=== PATIENT | male | born 1960 | race Caucasian/White ===

== ENCOUNTER → 2019-09-24 | Outpatient (CLI) | payer OTHER, SELFPAY ==
[2013-05-22 13:29] VITALS: BMI 27.3
--- NOTE | 2019-09-24 11:30 | PROSBIL_PTH ---
PATIENT: ELSIE LEE LOC: [facility] U#:[id number] AGE/SX: 59/M ROOM: RE09/24/[address]: Dr. Bhavesh Szymanski MD : 1960 BED: DIS: 09/24/2019 SPEC #: [id number] RECD: 09/24/19 15:55 STATUS: LEIGHANN REZoe #: [id number] KALIA: 09/24/19 11:[address]: Bhavesh Szymanski DEPT: SURGICAL PATHOLOGY RECD BY: Gerson Bonilla ENTERED: 09/25/19 08:28 SP TYPE: PROST BX ELIESER DR: Dr. Nikolas Arriaga MD Tissues: A - PROSTATE RIGHT B - PROSTATE RIGHT C - PROSTATE RIGHT D - PROSTATE LEFT E - PROSTATE LEFT F - PROSTATE LEFT Procedures: PROSTATE BX HEADER OPERATION: Prostate biopsy PRE-OP DIAGNOSIS: Elevated PSA TISSUE SUBMITTED: A - Right apex, B - Right mid, C - Right base, D - Left apex, E - Left mid, F - Left base MICROSCOPIC DIAGNOSIS A. Right prostate, apex, core biopsy: Prostatic tissue, negative for malignancy. B. Right prostate, mid, core biopsy: Prostatic adenocarcinoma. Ryan grade: 3+3=6 Number of cores involved: 1/2 Proportion of tissue involved: ~15% Perineural invasion: Present, focal. Greatest tumor length: 0.2 cm Chronic inflammation. C. Right prostate, base, core biopsy: Prostatic adenocarcinoma. Bridger grade: 3+3=6 Number of cores involved: 2/2 Proportion of tissue involved: ~40% Perineural invasion: Present, focal. Greatest tumor length: 0.7 cm Focal high-grade prostatic intraepithelial neoplasia (HGPIN). Focal chronic inflammation. D. Left prostate, apex, core biopsy: Prostatic adenocarcinoma. Ryan grade: 3+3=6 Number of cores involved: 1/2 Proportion of tissue involved: 15-20% Perineural invasion: Not identified. Greatest tumor length: 0.3 cm Focal high-grade prostatic intraepithelial neoplasia (HGPIN). E. Left prostate, mid, core biopsy: Prostatic adenocarcinoma. Ryan grade: 3+3=6 Number of cores involved: 3/4 Proportion of tissue involved: ~25% Perineural invasion: Not identified. Greatest tumor length: 0.2 cm Focal high-grade prostatic intraepithelial neoplasia (HGPIN). F. Left prostate, base, core biopsy: Prostatic adenocarcinoma. Ryan grade: 3+4=7 Number of cores involved: 2/2 Proportion of tissue involved: ~30% Perineural invasion: Not identified. Greatest tumor length: 0.5 cm Focal high-grade prostatic intraepithelial neoplasia (HGPIN). SJ:mello 09/26/19 COMMENT Case has been reviewed in consultation with Dr. Jones who concurs with the above diagnosis. IDC:AM MICROSCOPIC DESCRIPTION Slides are reviewed. GROSS DESCRIPTION A - Received is one container designated prostate, right apex. The specimen consists of two elongated fragments of light guzman-white soft tissue measuring 0.2 and 0.5 cm in length and 0.1 cm in diameter. The specimen is totally submitted in one cassette. B - Received is one container designated prostate, right mid. The specimen consists of two elongated fragments of light guzman-white soft tissue each measuring 1.3 cm in length and 0.1 cm in diameter. The specimen is totally submitted in one cassette. C - Received is one container designated prostate, right base. The specimen consists of two elongated fragments of light guzman-white soft tissue each measuring 1.5 cm in length and 0.1 cm in diameter. The specimen is totally submitted in one cassette. D - Received is one container designated prostate, left apex. The specimen consists of two elongated fragments of light guzman-white soft tissue measuring 0.5 and 0.7 cm in length and 0.1 cm in diameter. The specimen is totally submitted in one cassette. E - Received is one container designated prostate, left mid. The specimen consists of four elongated fragments of light guzman-white soft tissue measuring 0.3 to 1.5 cm in length and 0.1 cm in diameter. The specimen is totally submitted in one cassette. F - Received is one container designated prostate, left base. The specimen consists of two elongated fragments of light guzman-white soft tissue each measuring 1 cm in length and 0.1 cm in diameter. The specimen is totally submitted in one cassette. / SJ:rg 09/25/19 TC:0 CPT: 97702 x6
== END | disposition home or self-care (01) ==
LOC: LABSPEC 16:41
PROVIDERS: PCP Family Medicine; Referring Provider Urology; Visit Provider Urology
DX: R97.20 Elevated prostate specific antigen [PSA] (principal)
CPT/HCPCS: 88305; G0416

== ENCOUNTER 2019-11-06 08:49 | Day surgery (SDC) | payer SELFPAY ==
[2019-11-06 09:24] VITALS: BP 119/84; PULSE 70; RESP 16; TEMP 36.6; O2SAT 98; BMI 26.8
[2019-11-06] MEDS: Lactated Ringers 1,000 ML 100 ML IV (09:34)
--- NOTE | 2019-11-06 12:22 | HP.PCM_ITS ---
History of Present Illness Date of Admission: 11/06/19 Chief Complaint: Prostate cancer The patient is a 59 year old male with a history of low-grade and intermediate grade prostate cancer is elected to have radiation therapy today we are going to placed a fiducial gold markers for radiation treatment and also the spacer organ at risk gel to lower the risk of rectal toxicity Past Medical History Allergies No Known Allergies Allergy (Verified 11/06/19 09:22) Home Medications: Ambulatory Orders Medication Instructions Recorded NK 10/28/19 Surgical History: no surgical history Smoking Status: Never smoker Tobacco Use: Non-smoker Review of Systems Constitutional: Denies: Chills, Fever, Weight Change HEENT: Denies: Head Aches, Sinus Congestion, Sinus Drainage Cardiovascular: Denies: Chest Pain, Palpitations Respiratory: Denies: Cough, Shortness of breath at rest, Sputum production Gastrointestinal: Denies: Abdominal Pain, Nausea, Vomiting Genitourinary: Denies: Dysuria Musculoskeletal: Denies: Joint Pain, Joint Tenderness Skin: Denies: Rash, Wounds Neurological: Denies: Numbness, Tingling, Focal weakness Psychiatric: Denies: Anxiety, Depression, Homicidal Ideations, Suicidal Ideations Hematologic/ Lymphatic: Denies: Easy Bruising, Easy Bleeding VTE Information - Inpt Only VTE Present on Admission: No VTE Mechan Device Prophylaxis: SCD's - Physical Exam Vitals/I&O's: Vital Signs Temp Pulse Resp BP Pulse Ox 97.9 F 70 16 119/84 H 98 11/06/19 09:24 11/06/19 09:24 11/06/19 09:24 11/06/19 09:24 11/06/19 09:24 Oxygen Delivery Method Room Air Weight: 75.4 kg Body Mass Index (BMI) 26.8 Finger Stick Blood Glucose 127 General: Alert, Oriented x3, Cooperative HEENT: Atraumatic, PERRLA, EOMI, Normocephalic Neck: Supple, No JVD, Negative Carotid Bruits Lungs: Clear to auscultation, Normal air movement Cardiovascular: Regular rate, No murmurs Abdomen: Bowel Sounds Present, Soft, Non Tender Extremities: No edema, Capillary Refill Less than 3 Seconds Skin: No rashes, No breakdown Musculoskeletal: No Tenderness to Palpation of Joints or Extremities Neurological: Cranial nerves II-XII grossly intact Psych/Mental Status: Normal Affect, Appropriate Current Medications Lactated Ringer's () 1,000 mls @ 100 mls/hr IV .Q10H CLARENCE Last Admin: 11/06/19 09:34 Dose: 100 mls/hr Documented by: Assessment/Plan 59-year-old male plan to proceed with placement of gold fiducial markers and sp acer organ at risk gel.
--- NOTE | 2019-11-06 12:25 | DCINST_ITS ---
Discharge Diet: No Restrictions Discharge Activity: Return to Normal Activity, May Not Drive - for 2 days. Additional Activity Instructions:: Please be aware that pain medications may cause nausea. You should typically eat light foods as you take your pain medication. Pain medication may cause constipation, if this is a problem for you, please discuss with your doctor. Call your doctor if your incision/area has: Continuous Slow Oozing, Sudden Increased Bleeding, Increased Pain/ Swelling, Increased Redness, Foul Smelling Discharge, Swelling at the incision site Suture Line Care: Avoid Pulling/Pushing, Avoid Pinching/Bending Allergies/Adverse Reactions: Allergies No Known Allergies Allergy (Verified 11/06/19 09:22) Medications to take at Discharge NK 10/28/19 Primary Care Physician: Care Physician,No Primary [Primary Care Provider] - Test Results: Test results from this visit will be discussed in further detail at your follow- up appointment, if applicable. Please Follow Up With: Bhavesh Szymanski MD When: in 2 weeks, please call to make an appointment.
[2019-11-06] MEDS: Cefazolin 2 GM in 0.9% Normal Saline 100 ML IV (12:30)
--- NOTE | 2019-11-06 12:54 | OP.PCM_ITS ---
Report of Operation Date of Procedure: 11/06/19 Pre-Operative Diagnosis: Prostate cancer Post-Operative Diagnosis: Same Surgery/Procedure Performed:: Transrectal ultrasound-guided placement of gold fiducial markers and transrectal ultrasound-guided placement of spacer gel organ at risk gel Description of Surgical Findings:: 59-year-old male was taken back to the operating room at the smooth induction of general anesthesia he was placed in dorsolithotomy position the penis and testicles were prepped and draped in usual sterile fashion, used an Ioban to hold up the testicles and penis. Placed an ultrasound probe into the rectum performed ultrasonography of the prostate and the 5 the prostate seminal vesicle and vas deferens and the prostate gland itself the base mid and apex. At this point then I put in 3 gold fiducial markers to at the base of right and left base and 1 at the right apex. Once the fiducial markers were in place then the spacer gel matrix solution was preprepped in the back table and prepared per laminating machine offbearer's instruction. I then advanced the needle into the perineum into the knee space the Denonvilliers' fascia and once I got to the correct location right below the prostate between the rectum the prostate injected the saline got a nice puff and separation between the rectum and the prostate and then I injected the gel matrix solution with the prepared kit over the course of 13 seconds had very nice separation between the rectum and the prostate during the injection. After the injection was completed then the needle was removed the patient was cleaned prepped and draped and taken stirrups and taken the PACU in good condition. He is going to proceed with radiation therapy. Type of Anesthesia:: General Drains: none - Admit VTE Documentation VTE Present on Admission: No
[2019-11-06 13:02] VITALS: BP 119/84; BP 121/81; PULSE 61; RESP 16; TEMP 36.3; O2SAT 97
[2019-11-06 13:14] VITALS: BP 115/86; BP 119/84; PULSE 60; RESP 16; O2SAT 97
[2019-11-06 13:25] VITALS: BP 119/84; BP 123/82; PULSE 60; RESP 16; TEMP 36.3; O2SAT 97
[2019-11-06 14:20] VITALS: BP 119/84; BP 131/82; PULSE 60; RESP 16; TEMP 36.4; O2SAT 100
== END 2019-11-06 14:20 | disposition home or self-care (01) ==
LOC: SDC 08:51 → AC 08:57
PROVIDERS: Anesthesiology; Referring Provider Urology; Visit Provider Urology
PROC: (CPT 55874; principal; 2019-11-06 10:45)
DX: C61 Malignant neoplasm of prostate (principal); Z11.59 Encounter for screening for other viral diseases; G25.81 Restless legs syndrome
CPT/HCPCS: 00902; 55874; 55876; 87635; C9803; J7120; J2405; U0003

== ENCOUNTER → 2019-11-20 11:24 | Outpatient (CLI) | payer OTHER, SELFPAY ==
[2019-11-06 09:24] VITALS: BMI 26.8
[2019-11-20 12:13] LABS: Absolute Lymphocyte Count 1.04 X10^3/uL (0.83-4.51); Basophil# 0.06 X10^3/uL; Basophil% 1.4 % (0-1); Eosinophil# 0.06 X10^3/uL; Eosinophils% 1.4 % (0-5); Hematocrit 43.1 % (40-54); Hemoglobin 13.9 g/dL (13.0-16.5); Lymphocyte # 1.04 X10^3/ul (4.0); Lymphocyte % 23.4 % (19-41); Mean Corp Hgb Conc 32.3 g/dL (32-36); Mean Corpuscular Hgb 28.8 pg (27.0-32.0); Mean Corpuscular Volume 89.2 fL (80-94); Mean Platelet Vol. 9.7 fl (6.2-12.0); Monocyte# 0.26 X10^3/uL; Monocyte% 5.9 % (0-10); NRBC Flagged by Analyzer 0 % (0-5); Neutrophil # 3.01 X10^3/uL (2.7-7.7); Neutrophil % 67.7 % (47-70); Platelet Count 270 K/mm3 (150-450); RBC Distribution Width CV 13.5 % (11.6-14.6); RBC Distribution Width SD 44.2 fl (35.1-43.9); Red Blood Count 4.83 M/mm3 (4.6-6.2); White Blood Count 4.4 K/mm3 (4.4-11.0)
[2019-11-20 12:25] LABS: Creatinine, Serum 1.02 mg/dL (0.70-1.30); EST Glomerular Filtration Rate 80 mL/min (>60); Est Glom Filt Rate - Afr Amer 96 mL/min (>60)
== END ==
PROVIDERS: Referring Provider Radiology Radiation Oncology; Visit Provider Radiology Radiation Oncology
DX: Z01.818 Encounter for other preprocedural examination (principal); C61 Malignant neoplasm of prostate
CPT/HCPCS: 36415; 82565; 84153; 85025

== ENCOUNTER → 2019-11-21 12:40 | Outpatient (CLI) | payer OTHER, SELFPAY ==
[2019-11-06 09:24] VITALS: BMI 26.8
--- NOTE | 2019-11-21 13:25 | CT_ITS ---
STUDY: CT PELVIS WITH CONTRAST REASON FOR EXAM: Male, 59 years old. PROSTATE THERAPY PLANNING RADIATION DOSAGE (If Supplied By Facility): CTDIvol = ( 24.48 ) mGy, DLP = ( 1727.95 ) mGycm TECHNIQUE: Transaxial imaging of the pelvis was performed with oral contrast. IV 100ML ISOVUE 300 was administered intravenously. Individualized dose optimization techniques were used for this CT. COMPARISON: None. FINDINGS: Normal urinary bladder. Normal visualized small intestine. Normal visualized colon. There is no pelvic fluid. There is no pelvic lymphadenopathy or mass lesion. There is enlargement of the prostate gland. There are metallic implants of the right, left and posterior prostate gland. No periprostatic mass/adenopathy. Seminal vesicle cysts are present. Trace amount of fluid posterior to the prostate gland is seen on image 80 of series 2. There is a urethral device identified. There is scattered atherosclerotic calcification of the pelvic arteries. Normal abdominal wall. No lytic or sclerotic bone lesions identified. There are mild degenerative changes. CT/CT Pelvis W/CONT Therapy IMPRESSION: 1. CT images for prostate therapy planning. Mild fluid posterior to the prostate gland. 2. No pelvic sidewall adenopathy. Electronically Signed: Kamlesh Dai MD ([place]) at 9:11 EDT , Service support ,
== END ==
PROVIDERS: Referring Provider Radiology Radiation Oncology; Visit Provider Radiology Radiation Oncology
DX: C61 Malignant neoplasm of prostate (principal)
CPT/HCPCS: 51600; 72193; Q9967

== ENCOUNTER → 2019-12-19 12:21 | Outpatient (CLI) | payer OTHER, SELFPAY ==
[2019-12-19 15:30] LABS: Absolute Lymphocyte Count 0.46 X10^3/uL (0.83-4.51); Absolute Neutrophil Count 2.1 X10^3/uL (2.0-7.7); Basophil# 0.04 X10^3/uL; Basophil% 1.3 % (0-1); Eosinophil# 0.04 X10^3/uL; Eosinophils% 1.3 % (0-5); Hematocrit 42.2 % (40-54); Hemoglobin 13.6 g/dL (13.0-16.5); Lymphocyte # 0.46 X10^3/ul (4.0); Mean Corp Hgb Conc 32.2 g/dL (32-36); Mean Corpuscular Hgb 28.9 pg (27.0-32.0); Mean Corpuscular Volume 89.8 fL (80-94); Mean Platelet Vol. 9.6 fl (6.2-12.0); Monocyte# 0.45 X10^3/uL; Monocyte% 14.7 % (0-10); NRBC Flagged by Analyzer 0 % (0-5); Neutrophil # 2.06 X10^3/uL (2.7-7.7); Neutrophil % 67.4 % (47-70); POSITIVE DIFFERENTIAL YES; Platelet Count 253 K/mm3 (150-450); RBC Distribution Width CV 13.5 % (11.6-14.6); RBC Distribution Width SD 44.4 fl (35.1-43.9); White Blood Count 3.1 K/mm3 (4.4-11.0)
[2019-12-19 16:32] LABS: Differential Indicated SCAN CRITERIA MET
[2019-12-19 16:40] LABS: Anisocytosis RARE; Platelet Estimate ADEQUATE (ADEQ)
[2019-12-20 13:24] LABS: Pathologist Review Reviewed
== END ==
PROVIDERS: Referring Provider Radiology Radiation Oncology; Visit Provider Radiology Radiation Oncology
DX: C61 Malignant neoplasm of prostate (principal)
CPT/HCPCS: 36415; 85025

== ENCOUNTER → 2022-06-20 | Outpatient (CLI) | payer OTHER, SELFPAY ==
--- NOTE | 2022-06-20 | IMM_PTH ---
PATIENT: ELSIE LEE LOC: [facility] U#:[id number] AGE/SX: 62/M ROOM: RE06/20/[address]: Dr. Bhavesh Szymanski MD : 1960 BED: DIS: 06/20/2022 SPEC #: [id number] RECD: 06/21/22 14:53 STATUS: SOUMaryana REQ #: [id number] KALIA: 06/20/22 00:[address]: Bhavesh Szymanski DEPT: IMMUNOHISTOCHEMISTRY RECD BY: Lia Bruno ENTERED: 06/21/22 14:55 SP TYPE: IMMUNO OTHR DR: Desire Fallon, PIG HANDLER-C Tissues: A - PROSTATE RIGHT B - PROSTATE RIGHT C - PROSTATE RIGHT D - PROSTATE LEFT E - PROSTATE LEFT F - PROSTATE LEFT Procedures: 34BE12 (add) P40 (add) 34BE12 (initial) PHYSICIAN & INSTITUTION [place] [id number] SPECIMEN INFORMATION: Tissue Source: A - Right apex, B - Right mid, C - Right base, D - Left apex, E - Left mid, F - Left base Clinical Info: Elevated PSA Specimen Number: [id number] A-F CPT code: 95523, 91983 x10 METHODOLOGY: Deparaffinized sections of prefer/formalin-fixed tissue or PAP/DQ stained slides are incubated with monoclonal/polyclonal antibodies/oligonucleotide probes. Localization is made via biotin free immunoperoxidase method. Appropriate controls are performed and reacted as expected. Results on target cell population are indicated in the following table: RESULTS: ANTIBODY / CLONE RESULT Block A P40 (BC28) positive 34BE12 (34BE12) positive Block B P40 (BC28) positive 34BE12 (34BE12) positive Block C P40 (BC28) positive 34BE12 (34BE12) positive Block D P40 (BC28) positive 34BE12 (34BE12) positive Block E P40 (BC28) positive 34BE12 (34BE12) positive Block F P40 (BC28) positive 34BE12 (34BE12) positive These tests were developed and their performance characteristics determined by [facility]. They may not have been cleared or approved by the U.S. Food and Drug Administration. The FDA has determined that such clearance or approval is not necessary. The above immunohistochemical/dualISH markers are ordered and reviewed by the Pathologist. INTERPRETATION: A. Right prostate, apex, core biopsy: Prostatic tissue, negative for malignancy. B. Right prostate, mid, core biopsy: Prostatic tissue, negative for malignancy. C. Right prostate, base, core biopsy: Prostatic tissue, negative for malignancy. D. Left prostate, apex, core biopsy: Prostatic tissue, negative for malignancy. E. Left prostate, mid, core biopsy: Prostatic tissue, negative for malignancy. F. Left prostate, base, core biopsy: Prostatic tissue, negative for malignancy. SJ:mello 06/22/2022
--- NOTE | 2022-06-20 08:00 | PROSBIL_PTH ---
PATIENT: ELSIE LEE LOC: [facility] U#:[id number] AGE/SX: 62/M ROOM: RE06/20/[address]: Dr. Bhavesh Szymanski MD : 1960 BED: DIS: 06/20/2022 SPEC #: [id number] RECD: 06/20/22 11:33 STATUS: LEIGHANN REQ #: [id number] KALIA: 06/20/22 08:[address]: Bhavesh Szymanski DEPT: SURGICAL PATHOLOGY RECD BY: Alejandra Rodríguez ENTERED: 06/20/22 13:30 SP TYPE: PROST BX ELIESER DR: PETERSON Mcfadden Tissues: A - PROSTATE RIGHT B - PROSTATE RIGHT C - PROSTATE RIGHT D - PROSTATE LEFT E - PROSTATE LEFT F - PROSTATE LEFT Procedures: PROSTATE BX HEADER OPERATION: Prostate biopsy PRE-OP DIAGNOSIS: Elevated PSA TISSUE SUBMITTED: A - Right apex, B - Right mid, C - Right base, D - Left apex, E - Left mid, F - Left base MICROSCOPIC DIAGNOSIS A. Right prostate, apex, core biopsy: Prostatic tissue, negative for malignancy. See comment. B. Right prostate, mid, core biopsy: Prostatic tissue, negative for malignancy. See comment. C. Right prostate, base, core biopsy: Prostatic tissue, negative for malignancy. See comment. D. Left prostate, apex, core biopsy: Prostatic tissue, negative for malignancy. See comment. E. Left prostate, mid, core biopsy: Prostatic tissue, negative for malignancy. Focal mild chronic inflammation. See comment. F. Left prostate, base, core biopsy: Prostatic tissue, negative for malignancy. See comment. SJ:rg 06/22/2022 COMMENT A-F. All specimens show similar morphologic changes and prominent stromal tissue. Focal mild epithelial atypia is noted and may represent therapy-related changes. Clinical correlation and appropriate follow up are necessary. Immunohistochemistry ([id number]) supports the above diagnosis. Please make reference to previous specimen ([id number]) right prostate, mid and base, left prostate, apex, mid and base, core biopsies with diagnosis of ?prostatic adenocarcinoma.? Case has been reviewed in consultation with Dr. Jones who concurs with the above diagnosis. IDC:AM MICROSCOPIC DESCRIPTION Slides are reviewed. GROSS DESCRIPTION A - Received is one container designated prostate, right apex. The specimen consists of one elongated fragment of light guzman-white soft tissue measuring 1.5 cm in length and 0.1 cm in diameter. The specimen is totally submitted in one cassette. B - Received is one container designated prostate, right mid. The specimen consists of one elongated fragment of light guzman-white soft tissue measuring 1.5 cm in length and 0.1 cm in diameter. The specimen is totally submitted in one cassette. C - Received is one container designated prostate, right base. The specimen consists of one elongated fragment of light guzman-white soft tissue measuring 1.2 cm in length and 0.1 cm in diameter. The specimen is totally submitted in one cassette. D - Received is one container designated prostate, left apex. The specimen consists of one elongated fragment of light guzman-white soft tissue measuring 1.5 cm in length and 0.1 cm in diameter. The specimen is totally submitted in one cassette. E - Received is one container designated prostate, left mid. The specimen consists of one elongated fragment of light guzman-white soft tissue measuring 2.0 cm in length and 0.1 cm in diameter. The specimen is totally submitted in one cassette. F - Received is one container designated prostate, left base. The specimen consists of one elongated fragment of light guzman-white soft tissue measuring 1.7 cm in length and 0.1 cm in diameter. The specimen is totally submitted in one cassette. / SJ:rg 06/20/2022 TC:5 CPT: 87521 x6
== END | disposition home or self-care (01) ==
LOC: LABSPEC 12:00
PROVIDERS: PCP Nurse Practitioner Family; Referring Provider Urology; Visit Provider Urology
DX: R97.20 Elevated prostate specific antigen [PSA] (principal)
CPT/HCPCS: 88305; 88341; 88342; G0416

== ENCOUNTER → 2022-07-19 | Outpatient (CLI) | payer SELFPAY, OTHER ==
--- NOTE | 2022-07-19 09:00 | PET_ITS ---
EXAMINATION: 18 F Pylarify PET-CT ? Head to Toe HISTORY: A 62-year-old male with history of primary prostate carcinoma presenting for restaging examination. COMPARISON EXAMINATION: None available TECHNIQUE: Following the intravenous administration of 9.52 mCi of 18 F Pylarify via the left hand, image acquisitions of the head, neck, chest, abdomen and pelvis to the level of the bilateral feet at 73 minutes post-tracer distribution reveal: The examination was interpreted using the EANM (Herbert et al., Journal of Nuclear Medicine Molecular Imaging 44:1622, 2017) and PROMISE (Eddie et al., Journal of Nuclear Medicine 59:469, 2018) interpretive criteria. HEIGHT: 66 inches. WEIGHT: 175 lbs. PSMA expression score PROMISE criteria: High (3): SUV ? parotid-salivary gland, intermediate (2): SUV ? liver, low (1): > blood pool, < liver, (0): < blood pool. SUV reference values: Parotid glands 25.12. Normal liver parenchyma 11.04. Blood pool 3.4. FINDINGS: Head/Neck: Symmetric radiopharmaceutical concentration is defined in the bilateral parotid and submandibular glands. There is physiologic uptake within the nasal cavity. There is no evidence of abnormal increased tracer concentration within the cranial vault. CHEST: There is no evidence of abnormal increased radiotracer within the context of the bilateral hemithorax pulmonary parenchyma, mediastinal structures and right-left thoracic perihilum. Pertinent chest CT findings are as follows. Ventricular pacemaker placement is noted. There is atherosclerotic calcification defined in the thoracic aorta without evidence of dilatation-aneurysm formation. Minimal coronary arterial calcification is observed. Bilateral axillary and mediastinal soft tissue is ametabolic. There are no parenchymal densities-nodules defined in the bilateral hemithorax with quantitatively significant increased tracer uptake. Abdomen/Pelvis: Physiologic radiopharmaceutical concentration is otherwise noted in the hepatic and splenic parenchyma, visualized intestinal tract, right and left kidneys, urinary bladder. Review of CT of the abdomen and pelvis reveals the following. Pelvic cyst formation is noted in the left kidney. There is atherosclerotic calcification defined in the abdominal aorta without evidence of dilatation-aneurysm formation. Pelvic arterial calcification is observed. Minimal retained oral contrast material is noted in the visualized intestinal tract. Bilateral fat containing inguinal hernias are noted. Surgical clips are identified in the lower pelvis caudal to the urinary bladder without evidence of increased tracer uptake. SKELETAL: Degenerative changes are noted in the cervical, thoracic and lumbar spine without evidence of increased radiopharmaceutical concentration. PET/PET/CT Tumor WB Subs IMPRESSION: 1. NEGATIVE EXAMINATION. There is no definitive quantitative scintigraphic evidence of recurrent/metastatic viable neoplasm. Electronic Signature Stephen Alvarenga DO Electronically Signed: Stephen Alvarenga, at 22:40 EDT ,
== END | disposition home or self-care (01) ==
PROVIDERS: PCP Nurse Practitioner Family; Referring Provider Urology; Visit Provider Urology
DX: R97.20 Elevated prostate specific antigen [PSA] (principal); C61 Malignant neoplasm of prostate
CPT/HCPCS: 78816; A9595

== ENCOUNTER → 2023-01-24 | Outpatient (CLI) | payer SELFPAY, OTHER ==
--- NOTE | 2023-01-24 11:00 | PET_ITS ---
EXAMINATION: F [address] HISTORY: 63-year-old male with history of primary is prostate carcinoma presenting for restaging examination. COMPARISON EXAMINATION: Previous F-18 Pylarify PSMA PET/CT dated 07/19/2022 INDEX LESION SIZE PROMISE SCORE SUV TUMOR/PAROTID RATIO INTERPRETATION NEW: Left hemipelvis soft tissue adenopathy 23.1 mm largest 3 55.21 Fulfills quantitative criteria for viable neoplasm TECHNIQUE: Following the intravenous administration of 9.20 mCi of F 18 PSMA-Pylarify via the right hand, image acquisitions of the head, neck, chest, abdomen and pelvis contemporaneously interpreted with the CT of neck, chest, abdomen and pelvis dated 01/24/2023 to the level of the mid thigh at 70 minutes post-tracer distribution reveal: The examination was interpreted using the EANM (Herbert et al., Journal of Nuclear Medicine Molecular Imaging 44:1622, 2017) and PROMISE (Eddie et al., Journal of Nuclear Medicine 59:469, 2018) interpretive criteria. HEIGHT: 66 inches WEIGHT: 165 pounds PSMA expression score PROMISE criteria: High (3): SUV ? parotid-salivary gland, intermediate (2): SUV ? liver, low (1): > blood pool, < liver, (0): < blood pool. SUV reference values: Parotid glands 27.84 Normal liver parenchyma 10.5 Blood pool 2.8 FINDINGS: Head/Neck: Symmetric radiopharmaceutical is defined in the right and left parotid and submandibular glands. Physiologic uptake is identified in the nasal cavity. There is no evidence of abnormal increased tracer uptake within the cranial vault. CHEST: There is no scintigraphic evidence of abnormal increased radiopharmaceutical on review of the bilateral hemithorax pulmonary parenchyma, mediastinal structures and thoracic perihilum. Pertinent chest CT findings are as follows. There is coronary arterial calcification is observed. Atherosclerotic calcification is manifest within the thoracic aorta without evidence of dilatation-aneurysm formation. Ventricular pacemaker placement is defined. Bilateral axillary and scattered mediastinal soft tissue densities are nonglucose avid. There are no parenchymal densities-nodules defined in the right and left hemithorax with quantitatively significant increased FDG concentration. Abdomen/Pelvis: Facilitated tracer uptake is currently defined in the left hemipelvis in the distribution of the external and internal iliac lymph node basin in two separate locations. The calculated maximum standard uptake value is 55.21. The PROMISE score is 3. The maximal axial diameter of the largest metabolic, morphologic abnormality is 23.1 mm. Normal physiologic uptake is noted in the hepatic and splenic parenchyma. There is symmetric demonstration of the right and left kidneys, normal uptake in the urinary bladder and visualized intestinal tract. Review of CT of the abdomen and pelvis reveals the following. Atherosclerotic calcification is noted in the abdominal aorta without evidence of aneurysm formation. Pelvic arterial calcification is encountered. Peripelvic cyst formation is noted in the region of the left kidney. Fat containing bilateral inguinal hernias are demonstrated. Subcentimeter bilateral inguinal soft tissue densities are non-tracer. Surgical clip placement is noted in the lower pelvic mesentery, caudal to the urinary bladder. SKELETAL: Degenerative changes identified in the axial skeletal structures demonstrate no evidence of increased radiotracer uptake. A compression deformity is noted at the level of the 11th thoracic vertebra. PET/PET/CT Tumor WB Subs IMPRESSION: 1. ABNORMAL EXAMINATION indicative of malignant-viable neoplasm. 2. Facilitated radiotracer concentration currently identified in the left hemipelvis fulfill quantitative criteria for malignant transformation. 3. Overall compared to the study dated 07/19/2022, there is current demonstration of viable neoplasm within the left hemipelvis. Electronic Signature Stephen Alvarenga D.O. Accurate Quantification of SUVs and standardized PROMISE scores for this report are calculated using the exclusive [employer], ([place].S. Patent No. [phone] [place] patent [phone] ). Standardization and correction of the FDG SUV metric exclusively available with [employer] intellectual property, allow for vendor non-specific objective quantitative sequential FDG PET-CT comparison and otherwise unobtainable optimization of the sensitivity and specificity of the examination. [email or web address] Electronically Signed: Stephen Alvarenga DO at 13:01 EST ,
== END | disposition home or self-care (01) ==
PROVIDERS: PCP Nurse Practitioner Family; Referring Provider Urology; Visit Provider Urology
DX: C61 Malignant neoplasm of prostate (principal)
CPT/HCPCS: 78816; A9595

== ENCOUNTER 2023-03-01 08:36 | Day surgery (SDC) | payer SELFPAY, OTHER ==
[2023-03-01] VITALS (8 sets, daily range): BP systolic 136–146; BP diastolic 75–83; PULSE 60–76; RESP 16–18; TEMP 36.5–37.1; O2SAT 94–100; BMI 26.6
--- NOTE | 2023-03-01 | LYMN_PTH ---
PATHOLOGY RESULTS PATIENT: ELSIE LEE LOC: [facility] – [place] U#:[id number] AGE/SX: 63/M ROOM: RE03/01/[address]: Dr. Bhavesh Szymanski MD : 1960 BED: DIS: 03/01/2023 SPEC #: [id number] RECD: 03/02/23 08:07 STATUS: LEIGHANN CARVAJALZoe #: [id number] KALIA: 03/01/23 00:[address]: Bhavesh Szymanski DEPT: SURGICAL PATHOLOGY RECD BY: Neisha Almaraz ENTERED: 03/02/23 08:08 SP TYPE: LYMPH NODE OTHR DR: No Primary Care Phys Tissues: Lymph node of pelvis, NOS Lymph node of pelvis, NOS Procedures: Surgery Specimen Level V HEADER OPERATION: Laparoscopic robotic pelvic lymph node dissection PRE-OP DIAGNOSIS: Malignant neoplasm of prostate, rising PSA TISSUE SUBMITTED: A - Right pelvic lymph nodes, B - Left pelvic lymph nodes MICROSCOPIC DIAGNOSIS A. Right pelvic lymph nodes, regional dissection: Eight out of eight lymph nodes, negative for metastatic carcinoma. B. Left pelvic lymph nodes, regional dissection: One out of three lymph nodes, positive for metastatic carcinoma, consistent with prostate primary. See comment. FREDRICK:mello 03/03/2023 COMMENT B. The largest focus of metastases measures 2.0 cm in greatest dimension. Focal extranodal extension is noted measuring 0.2 cm in greatest dimension. Immunohistochemistry ([id number]) supports the above diagnosis. Please make reference to previous specimens ([id number]) right posterior, mid and base and left prostate, apex, mid and base, core biopsies with diagnosis of prostatic adenocarcinoma and ([id number]) right prostate, apex, mid and base and left prostate, apex, mid and base, core biopsies with diagnosis of prostatic tissue, negative for malignancy. Case has been reviewed in consultation with Dr. Jones who concurs with the above diagnosis. IDC:AM MICROSCOPIC DESCRIPTION Slides are reviewed. GROSS DESCRIPTION A - Received in fixative is one container labeled with the patient's name and designated right pelvic lymph nodes. The specimen consists of two variable sized pieces of yellow adipose tissue containing multiple nodules, consistent with lymph nodes measuring in aggregate 6.5 x 6.0 x 1.5 cm. The largest nodule measures 2.0 cm in greatest dimension. The lymph nodes are submitted in entirety in six cassettes as follows: 1 & 2 - multiple lymph nodes, 3 - one possible bisected lymph node, 4-6 - one possible serially sectioned, possible fatty, lymph node. B - Received in fixative is one container labeled with the patient's name and designated left pelvic lymph nodes. The specimen consists of two variable sized pieces of yellow adipose tissue containing lymph node measuring in aggregate 5.0 x 5.0 x 1.5 cm. Multiple nodules consistent with lymph nodes are identified, the largest measures 3.0 cm in greatest dimension. The largest lymph node reveals solid cut surfaces with gross involvement by the tumor. The lymph nodes are submitted in entirety in six cassettes as follows: 1 - one possible lymph node, 2 - one lymph node, 3 - one bisected lymph node, 4-6 - largest lymph node serially sectioned, entirely submitted. / FREDRICK:mello 03/02/2023 TC:0 CPT: 25026 x2
--- NOTE | 2023-03-01 | IMM_PTH ---
PATHOLOGY RESULTS PATIENT: ELSIE LEE [place] [facility] [place][id number] AGE/SX: 63/M ROOM: RE03/01/[address]: Dr. Bhavesh Szymanski MD : 1960 BED: DIS: 03/01/2023 SPEC #: [id number] RECD: 03/03/23 13:53 STATUS: SOUT REQ #: [id number] KALIA: 03/01/23 00:[address]: Bhavesh Szymanski DEPT: IMMUNOHISTOCHEMISTRY RECD BY: Lia Bruno ENTERED: 03/03/23 13:55 SP TYPE: IMMUNO OTHR DR: No Primary Care Phys Tissues: Lymph node of pelvis, NOS Procedures: RCC (add) NAPSIN A (add) CK20 (add) CK5-6 (add) CK7 (add) CK8 (add) HEP PAR (add) KI-67 (add) P53 (add) TTF1 (add) Pankeratin (initial) P40 (add) PSAP (add) PHYSICIAN & [address] [address] SPECIMEN INFORMATION: Tissue Source: B - Left pelvic lymph nodes Clinical Info: Malignant neoplasm of prostate Specimen Number: [id number] [id number] CPT code: 32640, 92637 x12 METHODOLOGY: Deparaffinized sections of prefer/formalin-fixed tissue or PAP/DQ stained slides are incubated with monoclonal/polyclonal antibodies/oligonucleotide probes. Localization is made via biotin free immunoperoxidase method. Appropriate controls are performed and reacted as expected. Results on target cell population are indicated in the following table: RESULTS: ANTIBODY / CLONE RESULT Block B6 AE1-3 (AE1/AE3/PCK26) positive CK7 (OV-TL12/30) positive, focal CK8 (58eztrG16) positive CK20 (KS20.8) negative TTF-1 (8G7G3/1) negative Napsin A (Rabbit Polyclonal) negative HepPar (OCh1E5) positive RCC (PN-15) negative PSAP (PASE/4LJ) positive CK5-6 (D5 & 1684) negative P40 (BC28) negative P53 (DO-7) negative (null pattern) Ki-67 (30-9) positive, low (~1%) These tests were developed and their performance characteristics determined by [facility]. They may not have been cleared or approved by the U.S. Food and Drug Administration. The FDA has determined that such clearance or approval is not necessary. The above immunohistochemical/dualISH markers are ordered and reviewed by the Pathologist. INTERPRETATION: B. Left pelvic lymph nodes, biopsy: Metastatic adenocarcinoma, consistent with prostate primary. This case has been reviewed in consultation with Dr. Jones who concurs with the above diagnosis. SJ:mello 03/06/2023
--- OUTSIDE RECORDS SUMMARY | 2023-03-01 09:03 | XMS RPT_ITS | CCD ---
Author Name Unknown Address [address] [place] [id number] Organization [facility] Care Team Providers Care Veterinary Toxicologist Name Role Phone FLACA SKAGGS, DR GARRETT Camara Primary Care Physician ([phone]) FLACA SKAGGS, DR GARRETT Camara Primary Care Eamon Pineda MD, DR LOGAN ANGELES Attending Pasha THAYER MD, DR GARRETT Camara Primary Care Eamon Pineda MD, DR LOGAN ANGELES Attending Pasha THAYER MD, DR GARRETT Camara Primary Care Eamon Pineda MD, DR LOGAN ANGELES Attending Pasha THAYER MD, DR GARRETT Camara Primary Care Eamon Pineda MD, DR LOGAN ANGELES Attending Pasha carvalho Medications Current Medications Medication Drug Class(es) Dates Sig (Normalized) Sig (Original) doxycycline hyclate 100 mg oral capsule (7 sources) Tetracycline-clas s Drug Start: 10-13-2020 doxycycline hyclate 100 mg oral capsule Dose : 100 mg = 1 cap(s), Oral, q12h, 77.1 Start Date: 10/13/20 Status: Ordered Problems Active Problems Problem Classification Problem Date Documented Da te Episodic/Chronic Cancer of prostate (1 source) Malignant neoplasm of prostate; Translations: [Malignant neoplasm of prostate] Chronic Cardiac arrest and ventricular fibrillation (8 sources) Asystole Onset: 07-07-2016 07-07-2016 Chronic Conduction disorders (2 sources) Cardiac pacemaker in situ; Translations: [Sinus node dysfunction] 09-16-2022 Chronic Other screening for suspected conditions (not mental disorders or infectious disease) (7 sources) No current problems or disability; Translations: [No Chronic Problems] 01-22-2021 Episodic Unclassified (1 source) Prostatic structure (body structure) Onset: 02-13-2019 09-16-2022 Past or Other Problems Problem Classification Problem Date Documented Da te Episodic/Chronic Cardiac dysrhythmias (8 sources) Bradycardia Onset: 07-07-2016 07-07-2016 Episodic Syncope (8 sources) Syncope Onset: 07-07-2016 07-07-2016 Episodic Results Test Name Value Interpretation Reference Range Facil ity Encounters Encounter Date Encounter Type Care Provider Facility Start: 01-30-2023 End: 01-31-[address] GARRETT THAYER MD Facility:B Start: 01-06-2023 End: 01-07-[address] GARRETT THAYER MD Facility:[facility] Start: 01-06-2023 End: 01-06-[address] LOGAN ROBLES MD [facility] Start: 07-01-2022 End: 07-02-[address] GARRETT THAYER MD Facility:B Start: 05-25-2022 End: 05-26-[address] GARRETT THAYER MD Facility:[facility] Start: 05-25-2022 End: 05-25-[address] LOGAN ROBLES MD [facility] Start: 11-25-2021 End: 11-25-2021 Patient encounter procedure ROJAS FINCH [employer] DES[employer] [facility] Start: 08-13-2021 End: 08-13-2021 Patient encounter procedure ROJAS MATTHEWISRRAELANN MARIE [employer] DES[employer] [facility] Start: 05-06-2021 End: 05-06-2021 Patient encounter procedure BOO VIGIL MD [facility] Start: 05-06-2021 End: 05-06-[address] LOGAN ROBLES MD [facility] Start: 04-29-2021 End: 04-29-[address] LOGAN ROBLES MD [facility] Start: 01-22-2021 End: 01-22-[address] LOGAN ROBLES MD [facility] Procedures Date Procedure Procedure Detail Performing Clinician Start: 03-06-2017 Computerized axial tomography of brain ROJAS FINCH [employer] Immunizations Immunization Date Immunization Notes Care Provider Eva liang 03-06-2017 tetanus toxoid, redu jason diphtheria toxoid, and acellular pertussis vaccine, adsorbed; Translations: [Boostrix (Tdap)] DR LOGAN ROBLES MD [facility] Payers Date Payer Category Payer Self-pay 1960 Unknown [id number] 1960 Unknown [id number] 1960 Unknown [id number] 1960 Unknown [id number] Social History Date Type Detail Facility Start: 08-30-2019 Never smoked t obacco (finding) [facility] Sex Assigned At [facility] Progress note 08-10-2020 Note Date & Type Note Facility 08-10-2020 Note HNO ID: [id number] Author: Lewis Alvarez MD Service: ? Author Type: Physician Type: Progress Notes Filed: 08/10/2020 10:02 AM Note Text: Patient presents with: Insect Bite: middle of back x 2 days HPI: Rash: Location: Middle of the back. Worried maybe there was a tick in his back. Duration: 3 days Pruritis: No Pain: Yes Change: Bleeding/ulceration/blister/pustule: Small drainage. No fevers/chills Exposure: Outdoor exposure: Walked [place] last week. Recent illness: No. Treatment: tried to open wound with a pin this weekend, covered with fingernail estonian incase it was a tick, opened again with small drainage PAST MEDICAL HISTORY Diagnosis Date - Pacemaker - Prostate cancer (HCC) PAST SURGICAL HISTORY Procedure Laterality Date - PAST SURGICAL HISTORY OF 2019 prostate radiation MEDICATIONS: No prescriptions on file. ALLERGIES: ALLERGIES No Known Allergies VITALS: BP 122/80 Pulse 81 Resp 16 Wt 78.6 kg (173 lb 3.2 oz) SpO2 97% PHYSICAL EXAM: GEN: pleasant, no acute distress, alert SKIN: 3cm area of erythema mid back below the level of the scapula. Mild raised center with 2cm fullness below the skin and central escar. No fluctuant collection identified. ASSESSMENT/PLAN: 1. Abscess of back - ICD9: 682.2, ICD10: L02.212 Appears to be partially drained abscess. - SULFAMETHOXAZOLE 800 MG-TRIMETHOPRIM 160 MG TABLET Educated about ticks and Lyme disease. Follow up with worsening symptoms. Lewis Alvarez MD [facility] Evaluation + Plan note Note Date & Type Note Facility Evaluation + Plan note Future Appointments Appointment Date:05/12/2021 09:30:00 AM Scheduled Provider: Location:[facility] Appointment Type:CV Office Procedure PPM Appointment Date:08/13/2021 11:30:00 AM Scheduled Provider: Location:[facility] Appointment Type:CV Remote Procedure HM Appointment Date:10/13/2021 03:00:00 PM Scheduled Provider: Location:[facility] Appointment Type:CV OV [facility] Evaluation + Plan note Note Date & Type Note Facility Evaluation + Plan note Future Appointments Appointment Date:10/13/2021 02:30:00 PM Scheduled Provider: Location:[facility] Appointment Type:CV Office Procedure PPM Appointment Date:10/13/2021 03:00:00 PM Scheduled Provider: Location:[facility] Appointment Type:CV OV Appointment Date:01/13/2022 08:00:00 AM Scheduled Provider: Location:[facility] Appointment Type:CV Remote Procedure [facility] Evaluation + Plan note Note Date & Type Note Facility Evaluation + Plan note Future Appointments Appointment Date:02/09/2022 08:30:00 AM Scheduled Provider: Location:[facility] Appointment Type:CV Remote Procedure [facility] Evaluation + Plan note Note Date & Type Note Facility Evaluation + Plan note Future Appointments Appointment Date:09/07/2022 04:00:00 PM Scheduled Provider: Location:[facility] Appointment Type:CV Office Procedure PPM Appointment Date:09/07/2022 04:15:00 PM Scheduled Provider: Location:[facility] Appointment Type:CV OV Appointment Date:12/09/2022 08:15:00 AM Scheduled Provider: Location:[facility] Appointment Type:CV Remote Procedure [facility] Evaluation + Plan note Note Date & Type Note Facility Evaluation + Plan note Future Appointments Appointment Date:05/05/2023 08:45:00 AM Scheduled Provider: Location:[facility] Appointment Type:CV Remote Procedure [facility] Hospital course Narrative Note Date & Type Note Facility Hospital course Narrative No data available for this section [facility] Hospital Discharge instructions Note Date & Type Note Facility Hospital Discharge instructions No data available for this section [facility] Progress note Note Date & Type Note Facility Progress note No data available for this section [facility] Summary Purpose Family History No Family History Records Found No data available for this section No Family History Records Found Advance Directives No Advanced Directives Records FoundNo Advanced Directives Records Found Additional Source Comments (unrecognized sect ion and content) No Status Records FoundNo Status Records Found INFORMATION SOURCE (unrecogn ized section and content) DATE CREATED AUTHOR AUTHOR'S PACO ARMENDARIZ 01/31/2023 [facility] ([place]) Care Team (unrecognized sect ion and content) Care Team Personnel Name: GARRETT THAYER MD Med Service: [facility] DF Member Role: Primary Care Physician Address: Address: [address] [place] [address] Care Team Related Persons Name: NONE, NONE Name: ROSA ARELIS Camara Address: [facility] Name: ROSA ARELIS Camara Address: [facility] Name: ARELIS LEE Address: [facility] Care Team Personnel Name: GARRETT THAYER MD [facility] Service: [facility] Member Role: Primary Care Physician Address: Address: [address] [place] [address] Care Team Related Persons Name: NONE, NONE Name: ARELIS LEE Address: [facility] Name: LEE ARELIS Jax Address: [facility] Name: ARELIS LEE Address: [facility] Patient Care team informatio n (unrecognized section and content) Care Team Personnel Name: GARRETT THAYER MD Member Role: Primary Care Physician Address: Address: [address] [place] [address] Care Team Related Persons Name: NONE, NONE Name: ARELIS LEE Address: [facility] Name: ARELIS LEE Address: [facility] Name: ARELIS LEE Address: [facility] Care Team Personnel Name: GARRETT THAYER MD Member Role: Primary Care Physician Address: Address: [address] [place] [address] Care Team Related Persons Name: ARELIS LEE Address: [facility] Name: ARELIS LEE Address: [facility] Name: ARELIS LEE Address: [facility] FOR RECORDS PERTAINING TO PATIENTS WHO ARE OR HAVE BEEN ENROLLED IN A CHEMICAL DEPENDENCY/SUBSTANCEABUSE PROGRAM, SOME INFORMATION MAY BE OMITTED. This clinical summary was aggregated from multiple sources. Caution should be exercised in using it in the provision of clinical care. This summary normalizes information from multiple sources, and as a consequence, information in this document may materially change the coding, format and clinical context of patient data. In addition, data may be omitted in some cases. CLINICAL DECISIONS SHOULD BE BASED ON THE PRIMARY CLINICAL RECORDS. [facility] provides no warranty or guarantee of the accuracy or completeness of information in this document.
[2023-03-01] MEDS: Lactated Ringers 1,000 ML 15 ML IV ×2 (09:30→14:25)
[2023-03-01 09:40] LABS: Hematocrit 43.8 % (40-54); Hemoglobin 14.5 g/dL (13.0-16.5); Mean Corp Hgb Conc 33.1 g/dL (32-36); Mean Corpuscular Hgb 28.7 pg (27.0-32.0); Mean Corpuscular Volume 86.7 fL (80-94); Mean Platelet Vol. 9.1 fl (6.2-12.0); Platelet Count 222 K/mm3 (150-450); RBC Distribution Width CV 14.2 % (11.6-14.6); RBC Distribution Width SD 45.1 fl (35.1-43.9); Red Blood Count 5.05 M/mm3 (4.6-6.2); White Blood Count 3.9 K/mm3 (4.4-11.0)
[2023-03-01 09:59] LABS: Anion Gap 5 (5-15); BUN 9 mg/dL (7-18); BUN/Creat Ratio 9.1 RATIO (10-20); Calcium,Total 9.5 mg/dL (8.5-10.1); Chloride 107 mmol/L (98-107); Creatinine, Serum 0.99 mg/dL (0.70-1.30); EST Glomerular Filtration Rate 81 mL/min (>60); Est Glom Filt Rate - Afr Amer 99 mL/min (>60); Estimated Creatinine Clearance 69.81 ml/min; Glucose 101 mg/dL (74-106); Potassium 3.9 mmol/L (3.5-5.1); Sodium Level 140 mmol/L (136-145)
[2023-03-01] MEDS: Cefazolin 2 GM in 0.9% Normal Saline (100mL Bag) 100 ML IV (12:09)
[2023-03-01] MEDS: Bupivacaine Mpf 0.5% 30 ML VIAL (14:30)
--- NOTE | 2023-03-01 14:31 | HP.PCM_ITS ---
HPI - General General Date of Service: 03/01/23 Chief Complaint: Prostate cancer large pelvic lymph nodes [facility] Narrative ELSIE LEE, is a 63 M who presents for removal of pelvic lymph nodes history of prostate cancer plan to remove pelvic lymph nodes today laparoscopically [facility] Medical History (Updated 03/01/23 @ 14:[address] Bhavesh Szymanski MD) Cancer Cardiology follow-up encounter History of edema History of pacemaker History of stress test Leg cramps Loss of hearing Non-smoker Prostate disease Restless legs Wears glasses Home Medications multivit, min cmb #8-FA-co [id number] 3 0.5 mg-30 mg-150 mg capsule 2 cap PO DAILY 02/21/23 [History Last Taken 02/27/23] docusate sodium 100 mg capsule (Colace) 100 mg PO BID #20 caps 03/01/23 [Rx Last Taken Unknown] oxycodone 5 mg tablet 5 mg PO Q6H PRN pain 7 days #14 tabs 03/01/23 [Rx Last Taken Unknown] Allergy/AdvReac Type Severity Reaction Status Date / Time No Known Allergies Allergy Verified 03/01/23 09:40 Surgical History (Updated 02/21/23 @ 13:18 by Trista Gar) History of cystoscopy Social History Smoking Status: Never smoker Vital Signs Vital Signs Vital Signs: 03/01/23 09:30 03/01/23 09:30 Temperature 98.1 F Temperature Source Temporal Pulse Rate 76 Respiratory Rate 16 Respiratory Pattern Normal Blood Pressure 143/83 H Blood Pressure Mean 103 Blood Pressure Source Monitor Blood Pressure Position Sitting Blood Pressure Location Left Arm Pulse Ox 99 Oxygen Delivery Method Room Air Weight Weight: 75 kg Body Mass Index (BMI) 26.6 Results Lab / Micro Data 03/01/23 09:30 03/01/23 09:30 Labs: Laboratory Results - last 24 hr 03/01/23 09:30: WBC 3.9 L, RBC 5.05, Hgb 14.5, Hct 43.8, MCV 86.7, MCH 28.7, MCHC 33.1, RDW Std Deviation 45.1 H, RDW Coeff of Katerina 14.2, Plt Count 222, MPV 9.1, Sodium 140, Potassium 3.9, Chloride 107, Carbon Dioxide 28.0, Anion Gap 5, BUN 9, Creatinine 0.99, Estim Creat Clear Calc 69.81, Est GFR (MDRD) Af Amer 99, Est GFR (MDRD) Non-Af 81, BUN/Creatinine Ratio 9.1 L, Glucose 101, Calcium 9.5
--- NOTE | 2023-03-01 14:32 | OP.PCM_ITS ---
Report of Operation Date of Procedure: 03/01/23 Pre-Operative Diagnosis: Prostate cancer with enlarged lymph nodes Post-Operative Diagnosis: The same Surgery/Procedure Performed:: Laparoscopic robotic assisted pelvic lymph node dissection bilateral Description of Surgical Findings:: Patient was taken back to the operating room at a smooth induction of anesthesia he was placed in dorsolithotomy position. Penis and testicles and abdomen were prepped and draped in usual fashion when a Blum catheter was placed into the bladder I then entered the peritoneal cavity through the umbilical incision placed the camera trocar left arm trocar right arm trocar air seal port and suction port we then docked the robot and then started the dissection I first mobilized the colon off the lateral wall I then went to the patient's right pelvic lateral wall identified the anatomy identified the vas deferens the ureter was then identified and the external iliac was identified and then all the lymphatic tissue coming off the external iliac down to the sewing machine operator plastic zipper below the obturator coming up off the vas deferens and off the ureter inferiorly was all removed and placed in Endo Catch bag and removed we used clips and vessel sealer during the case and also used Floseal and some Surgicel at the end to control minor bleeding, after this was done then went to the left side on the left side there was a large hard pelvic lymph node was above the iliac artery and then I identified first the ureter opened this up and then identified I opened up over the iliac artery along the pelvic sidewall and identify the obturator nerve inferiorly and then all the lymphatic tissues in the space was removed using clips cauteries and also by polar the 1 lymph node that was really hard was extremely stuck to the iliac artery and vein took some time to take out the lymph node is lymph node felt positive after the all the tissue was removed all the lymph nodes removed and the pelvic sidewall then Floseal and Surgicel was placed patient anesthetic was reversed and as long as he can urinate and go home later today. Surgeon: Bhavesh Szymanski Type of Anesthesia: General Specimen's removed: lymphnodes Estimated Blood Loss (mL): 5 Admit VTE Documentation VTE Present on Admission: No VTE Mechan Device Prophylaxis: SCD's VTE Pharm Prophylaxis ordered?: No
--- NOTE | 2023-03-01 14:32 | DCINST_ITS ---
Discharge Instructions Diet Discharge Diet: No restrictions Activity Discharge Activity: Return to Normal Activity and May Not Drive (while taking narcotic pain medications.) Lifting Restrictions: No heavy lifting for 6 weeks Dressing / Incision Call your doctor if you observe: Fever of 101 or Higher Follow Up Care Please Follow Up With: Bhavesh Szymanski MD When: Call [phone] for an appointment Test Results: Test results from this visit will be discussed in further detail at your follow- up appointment, if applicable. Discharge Plan Admission Primary Reason for Your Visit: Pelvic lymph node dissection Attending Provider: Bhavesh Szymanski Primary Care Provider: Care Physician,Corinne Primary Discharge Orders/Prescriptions Prescriptions: New docusate sodium [Colace] 100 mg capsule 100 mg PO BID Qty: 20 0RF oxycodone 5 mg tablet 5 mg PO Q6H PRN (Reason: pain) 7 Days Qty: 14 0RF No Action mv, min cmb#[id number] 3 0.5-30-150 mg capsule 2 cap PO DAILY Referrals / Follow Up: Bhavesh Szymanski MD [Med Staff - Active Staff] - Desire Fallon NP, SENIOR PAINTER-C [Non-Staff] - Disposition Disposition (needs filled in before D/C Order can be placed): Home, Self Care
[2023-03-01] MEDS: Ketorolac 15 MG/ML Vial IV (16:06)
== END 2023-03-01 17:17 | disposition home or self-care (01) ==
LOC: SDC 08:39 → AC 08:42
PROVIDERS: Anesthesiology; Referring Provider Urology; Visit Provider Urology
PROC: 0VT04ZZ Resection of Prostate, Percutaneous Endoscopic Approach (ICD-10-PCS; CPT 55866; principal; 2023-03-01 11:45)
DX: C61 Malignant neoplasm of prostate (principal); C77.5 Secondary and unspecified malignant neoplasm of intrapelvic lymph nodes; H91.90 Unspecified hearing loss, unspecified ear; Z95.0 Presence of cardiac pacemaker
CPT/HCPCS: 38571; S2900; 00840; 80048; 85027; 88307; 88341; 88342; J7120; J2405

== ENCOUNTER → 2023-05-30 | Outpatient (CLI) | payer SELFPAY, OTHER ==
--- NOTE | 2023-05-30 09:30 | PET_ITS ---
EXAMINATION: F [address] HISTORY: 63-year-old male with history of primary prostate carcinoma presenting for restaging examination. COMPARISON EXAMINATION: Previous F-18 Pylarify PET/CT study dated 01/24/2023 INDEX LESION SIZE PROMISE SCORE SUV TUMOR PAROTID RATIO INTERPRETATION NEW: Left thoracic perihilum 1 3.03 Quantitative criteria for viable neoplasm are not fulfilled PREVIOUS: Left hemipelvis Demonstrate resolution on the current examination TECHNIQUE: Following the intravenous administration of 9.72 mCi of F 18 Pylarify PSMA- via the right antecubital fossa, image acquisitions of the head, neck, chest, abdomen and pelvis contemporaneously interpreted with the CT of neck, chest, abdomen and pelvis dated 05/30/2023 to the level of the mid thigh at 70 minutes post-tracer distribution and previous Pylarify PET study dated 01/24/2023, reveal: The examination was interpreted using the EANM (Herbert et al., Journal of Nuclear Medicine Molecular Imaging 44:1622, 2017) and PROMISE (Eddie et al., Journal of Nuclear Medicine 59:469, 2018) interpretive criteria. HEIGHT: 165 WEIGHT: 66 inches PSMA expression score PROMISE criteria: High (3): SUV ? parotid-salivary gland, intermediate (2): SUV ? liver, low (1): > blood pool, < liver, (0): < blood pool. SUV reference values: Parotid glands 21.27 / 27.84 Normal liver parenchyma 7.0 / 10.5 Blood pool 1.8 / 2.8 FINDINGS: Head/Neck: Symmetric radiopharmaceutical is defined in the right and left parotid and submandibular glands. Physiologic uptake is identified in the nasal cavity. There is no evidence of abnormal increased tracer uptake within the cranial vault. CHEST: Mild increased radiotracer is visualized in the left thoracic perihilum generating a calculated standard uptake value of 3.03. The promise score is 1. Pertinent chest CT findings are as follows. Review of chest CT findings demonstrate no significant change when compared to the study dated 01/24/2023. Abdomen/Pelvis: Normal physiologic uptake is noted in the hepatic and splenic parenchyma. There is symmetric demonstration of the right and left kidneys, normal uptake in the urinary bladder and visualized intestinal tract. The previously described left hemipelvic hypermetabolic focus is not apparent on the current examination. Review of CT of the abdomen and pelvis reveals no definitive interval change when compared to the examination dated 01/24/2023. SKELETAL: Degenerative changes within the axial skeleton demonstrate no evidence of increased radiopharmaceutical concentration. PET/PET/CT Tumor Base -Thigh Subs IMPRESSION: 1. NEGATIVE EXAMINATION. There is no scintigraphic evidence of viable neoplastic disease on the current evaluation. 2. There is scintigraphic evidence of resolution of the prior defined left hemipelvic hypermetabolic focus. 3. Overall compared to the examination of 01/24/2023, there is current absence of defined viable neoplastic disease with interim resolution of the prior defined left hemipelvic hypermetabolic abnormality. Electronic Signature Stephen Alvarenga D.O. Accurate Quantification of SUVs and standardized PROMISE scores for this report are calculated using the exclusive [employer], ([place]. Patent No. [id number] [phone] [phone] [place] patent [phone] ). Standardization and correction of the FDG SUV metric exclusively available with [employer] intellectual property, allow for vendor non-specific objective quantitative sequential FDG PET-CT comparison and otherwise unobtainable optimization of the sensitivity and specificity of the examination. [email or web address] Electronically Signed: Stephen Alvarenga DO at 15:27 EDT ,
== END | disposition home or self-care (01) ==
PROVIDERS: Referring Provider Urology; Visit Provider Urology
DX: C61 Malignant neoplasm of prostate (principal)
CPT/HCPCS: 78815; A9595

== ENCOUNTER 2024-02-13 09:20 | Emergency (ER) | payer OTHER, SELFPAY ==
[2024-02-13 09:20] VITALS: BP 179/113; BP 180/114; PULSE 89; RESP 14; RESP 16; TEMP 36.3; O2SAT 97; O2SAT 98; BMI 27.9
--- NOTE | 2024-02-13 09:30 | EX.ED.DYSGE1 ---
HPI History of Present Illness Chief Complaint: Hypertension Informant: patient Onset/Context/Timing Onset: Today Context: Gradual Onset Timing: Continuous Quality: Aching Location: Bilateral temporal areas Worsened by: Nothing Relieved by: Nothing Narrative Narrative: Patient presents with headache and elevated blood pressure that began today. Patient states his blood pressure has been up and down for the past several days. Patient states he woke up with a headache today. Patient states it is over the temporal areas bilaterally. Patient describes it as aching. Patient states nothing makes it better nothing makes it worse. Patient denies any chest pain or shortness of breath. Patient denies any fevers or chills. Patient denies any nausea or vomiting. [facility] Medical History Loss of hearing Wears glasses Cancer Prostate disease Restless legs Non-smoker Leg cramps History of edema Cardiology follow-up encounter History of stress test History of pacemaker Home Medications ?Medication ?Instructions ?Recorded ?Last Taken ?Type multivit, min cmb #[id number] 2 cap PO DAILY 02/21/23 02/27/23 History [id number] 3 0.5 mg-30 mg-150 mg capsule docusate sodium 100 mg capsule 100 mg PO BID #20 caps 03/01/23 Unknown Rx (Colace) oxycodone 5 mg tablet 5 mg PO Q6H PRN pain 7 days #14 03/01/23 Unknown Rx tabs Allergy/AdvReac Type Severity Reaction Status Date / Time No Known Allergies Allergy Verified 02/13/24 09:21 Surgical History History of cystoscopy Social History Smoking Status: Never smoker ROS ROS ED Constitutional Constitutional ED: Denies chills or fever(s) Eyes Eyes: Denies blurry vision or change in vision ENT ENT ED: Denies rhinorrhea or sore throat Cardiovascular Cardiovascular: Denies chest pain or palpitations Respiratory/Chest Respiratory/Chest: Denies cough or dyspnea Gastrointestinal Gastrointestinal: Denies nausea or vomiting Genitourinary Genitourinary ED: Denies dysuria or hematuria Musculoskeletal Musculoskeletal: Reports neck pain; Denies back pain Integumentary Denies abscess or rash Neurologic Neurologic: Reports headache(s); Denies weakness Allergic/Immunologic Allergic/Immunologic ED: Denies mouth swelling or urticaria EXAM Physical Exam Const Vital Signs: 02/13/24 09:20 02/13/24 09:20 02/13/24 10:19 Temperature 97.3 F L Temperature Source Oral Pulse Rate 89 89 Respiratory Rate 14 16 Blood Pressure 180/114 H 179/113 H 190/108 H Blood Pressure Mean 136 135 135 Pulse Ox 97 98 Oxygen Delivery Method Room Air Room Air 02/13/24 10:58 Temperature Temperature Source Pulse Rate Respiratory Rate Blood Pressure 149/93 H Blood Pressure Mean 111 Pulse Ox Oxygen Delivery Method Positive well nourished and well developed General Appearance ED: well developed and NAD HEENT Reports moist mucous membranes Eyes PERRL and EOMs intact bilaterally Neck supple and no JVD Resp normal respiratory effort and clear to auscultation bilaterally Cardio regular rate and regular rhythm GI non-tender and non-distended Palpation: soft Extremity normal to inspection Neuro oriented x3, CN's II-XII intact bilaterally and no sensory deficits noted Sensorium / Orientation: alert Motor Exam: strength 5/5 throughout Psych mental status grossly normal MDM MDM MDM Narrative Medical decision making narrative: Differential diagnosis includes intracranial bleeding, tension headache, migraine headache, hypertensive urgency, hypertensive emergency, cardiac dysrhythmia, cardiac ischemia, electrolyte abnormality, and anxiety. CT scan of the brain will be obtained to assess for intracranial bleeding. Chest x-ray will be obtained to assess for pneumonia and widened mediastinum. EKG will be obtained to assess for cardiac dysrhythmia and cardiac ischemia. CBC will be obtained to assess for leukocytosis and anemia. Basic metabolic profile will be obtained to assess for electrolyte abnormality and renal function. Urinalysis will be obtained to assess for urinary tract infection and hematuria. Lab Data Attestation: I reviewed the patient's lab results. Lab results narrative: CBC was reviewed and was within normal limits. Basic metabolic profile was reviewed and was within normal limits. High-sensitivity troponin was reviewed and was normal at 7. Labs: Laboratory Results - last 24 hr 02/13/24 09:37 WBC 4.7 RBC 4.68 Hgb 13.4 Hct 40.9 MCV 87.4 MCH 28.6 MCHC 32.8 RDW Std Deviation 43.6 RDW Coeff of Katernia 13.6 Plt Count 263 MPV 8.9 Immature Gran % (Auto) 0.200 Neut % (Auto) 66.8 Lymph % (Auto) 22.6 Atlantic % (Auto) 8.0 Eos % (Auto) 1.3 Baso % (Auto) 1.1 H Absolute Neuts (auto) 3.1 Absolute Lymphs (auto) 1.05 Nucleated RBC % 0 Sodium 139 Potassium 3.9 Chloride 105 Carbon Dioxide 30.0 Anion Gap 4 L BUN 12 Creatinine 0.81 Estim Creat Clear Calc 92.05 Est GFR (MDRD) Af Amer 124 Est GFR (MDRD) Non-Af 102 BUN/Creatinine Ratio 14.8 Glucose 104 Calcium 8.8 Troponin I High Sens 7 Radiography Chest X-Ray - ED: 2 View, Read by ED Physician, Read by Radiologist and No Acute Disease Diagnostic Testing: Clinical Impression(s) from Imaging Studies Brain CT 02/13/24 09:34 IMPRESSION: Normal unenhanced CT scan of the brain. Electronically Signed: Robert Antonio MD at 10:11 EST , Chest X-Ray 02/13/24 10:00 IMPRESSION: No acute pulmonary process Electronically Signed: Robert Antoino MD at 10:13 EST , CT scan of the brain was obtained. There is no acute intracranial abnormality. This was interpreted by the radiologist and was also independently reviewed by myself. PA and lateral chest x-ray was obtained. There are 2 views. On my independent interpretation, lung coleman are clear. There is normal cardiac silhouette. Bony thorax is normal. There is no acute process noted. Radiologist also interpreted the x-ray and agrees. EKG Initial EKG: Attestation: I personally reviewed and interpreted this EKG as follows: Interpretation: Sinus Rhythm (84) and No Acute Injury Pattern Comments: EKG was obtained. On my independent interpretation, it showed a normal sinus rhythm with a rate of 84. NH interval, QRS interval, and QTc intervals were all normal. Piercy was normal. There are no acute ST or T wave changes. Prior EKG tracings: not available for review Prior: No Prior Treatment and Re-Evaluation :: Patient was given a dose of labetalol here. Patient's blood pressure improved to 149/93. Patient was advised of his findings. Patient was given a prescription for Cardura 1 mg once daily. Patient was instructed to follow-up with his primary care physician in 5 to 7 days. Patient was instructed to return if worse in any way. Patient understood and was agreeable with the plan. All questions were answered. Discharge Plan Triage Chief Complaint: Hypertension ED Provider: Ulysses Sal Dx/Rx/DC Orders Clinical Impression: Hypertension, Malignant neoplasm of prostate Instructions: ED Hypertension New Begin Treatment Prescriptions: No Action mv, min cmb#[id number] 3 0.5-30-150 mg capsule 2 cap PO DAILY docusate sodium [Colace] 100 mg capsule 100 mg PO BID Qty: 20 0RF oxycodone 5 mg tablet 5 mg PO Q6H PRN (Reason: pain) 7 Days Qty: 14 0RF Primary Care Provider: Care Physician,No Primary Referrals: Ron Merrill MD [Med Staff - Crop Production Advisor] - 5-7 Days Care Physician,No Primary [Primary Care Provider] - Print Language: Vietnamese Disposition Disposition: Home, Self Care
--- NOTE | 2024-02-13 09:34 | CT_ITS ---
STUDY: CT BRAIN WITHOUT CONTRAST REASON FOR EXAM: Male, 64 years old. Severe headache RADIATION DOSAGE (If Supplied By Facility): CTDIvol = ( 44.99 ) mGy, DLP = ( 829.85 ) mGycm TECHNIQUE: Transaxial CT imaging of the brain was performed without administration of intravenous contrast material. Individualized dose optimization techniques were used for this CT. COMPARISON: 2013 FINDINGS: Normal soft tissue structures. Normal calvarium. Normal size ventricles and extra-axial spaces for the patient''s age. Normal white matter tracts of the cerebral hemispheres. Normal basal ganglia and thalami. Normal brainstem. Normal cerebellum. There is no intracranial hemorrhage. There are no findings of an acute ischemic infarction. Normal visualized paranasal sinuses. CT/Brain/Head without Contrast IMPRESSION: Normal unenhanced CT scan of the brain. Electronically Signed: Robert Antonio MD at 10:11 EST ,
--- NOTE | 2024-02-13 09:34 | EKG12_ITS ---
Test Reason : GENERAL Blood Pressure : */* mmHG Vent. Rate : 84 BPM Atrial Rate : 84 BPM P-R Int : 112 ms QRS Dur : 90 ms QT Int : 372 ms P-R-T Axes : 52 -4 14 degrees QTcB Int : 439 ms Normal sinus rhythm Minimal voltage criteria for LVH, may be normal variant ( R in aVL ) Borderline ECG Confirmed by HORACIO SKAGGS, SONY ([id number]), editor trade journal ERIN ANGULO ([id number]) on 02/15/2024 6:09:24 AM Referred By: Confirmed By: SONY LEONARD MD
[2024-02-13 09:51] LABS: Absolute Lymphocyte Count 1.05 X10^3/uL (0.83-4.51); Absolute Neutrophil Count 3.1 X10^3/uL (2.0-7.7); Basophil# 0.05 X10^3/uL; Basophil% 1.1 % (0-1); Eosinophil# 0.06 X10^3/uL; Eosinophils% 1.3 % (0-5); Hematocrit 40.9 % (40-54); Hemoglobin 13.4 g/dL (13.0-16.5); Lymphocyte # 1.05 X10^3/ul (0.83-4.51); Lymphocyte % 22.6 % (19-41); Mean Corp Hgb Conc 32.8 g/dL (32-36); Mean Corpuscular Hgb 28.6 pg (27.0-32.0); Mean Corpuscular Volume 87.4 fL (80-94); Mean Platelet Vol. 8.9 fl (6.2-12.0); Monocyte# 0.37 X10^3/uL; NRBC Flagged by Analyzer 0 % (0-5); Neutrophil # 3.11 X10^3/uL (2.7-7.7); Neutrophil % 66.8 % (47-70); Platelet Count 263 K/mm3 (150-450); RBC Distribution Width CV 13.6 % (11.6-14.6); RBC Distribution Width SD 43.6 fl (35.1-43.9); Red Blood Count 4.68 M/mm3 (4.6-6.2); White Blood Count 4.7 K/mm3 (4.4-11.0)
--- NOTE | 2024-02-13 10:00 | RAD_ITS ---
STUDY: X-RAY CHEST REASON FOR EXAM: Male, 64 years old. Hypertension TECHNIQUE: PA and lateral views of the chest. COMPARISON: None. FINDINGS: [EKG leads overlie the chest. Satisfactory appearance of a left subclavian pacemaker The lungs are clear and expanded. There is no demonstrated pleural abnormality. Normal size heart. Normal mediastinum and bita. Normal visualized pulmonary arteries. Normal visualized aortic arch and descending thoracic aorta. Normal visualized thoracic spine. Normal visualized ribs, clavicles, and shoulders. There is no demonstrated abnormality of the visualized soft tissue structures of the upper abdomen. RAD/Chest PA and Lateral IMPRESSION: No acute pulmonary process Electronically Signed: Robert Antonio MD at 10:13 EST ,
[2024-02-13 10:19] VITALS: BP 190/108
[2024-02-13 10:22] LABS: Anion Gap 4 (5-15); BUN 12 mg/dL (7-18); BUN/Creat Ratio 14.8 RATIO (10-20); Calcium,Total 8.8 mg/dL (8.5-10.1); Chloride 105 mmol/L (98-107); Creatinine, Serum 0.81 mg/dL (0.70-1.30); EST Glomerular Filtration Rate 102 mL/min (>60); Est Glom Filt Rate - Afr Amer 124 mL/min (>60); Estimated Creatinine Clearance 92.05 ml/min; Glucose 104 mg/dL (74-106); Potassium 3.9 mmol/L (3.5-5.1); Sodium Level 139 mmol/L (136-145); Troponin-I HS 7 pg/mL (3.0-78.0)
--- NOTE | 2024-02-13 10:28 | CM.ED ---
Social work Reason for referral: no PCP Referral source: case find This SW identified patient's lack of PCP and need for resources. This SW entered patient's room and introduced self and role at [facility] [place]. Patient was sitting up in bed, alert and oriented, and patient's , Lana, was bedside. Patient gave permission to speak in front of patient's and patient confirmed not having a PCP. Patient reported having a family doctor who retired and patient reported not needing to get another doctor due to being relatively healthy. Patient and patient's accepted resources of [facility] [place] Provider Directory and Betzaida Fuentes information. Patient and patient's denied further needs at this time. Tosha Rayo, TRIAL LAWYER, ST[employer] ANALYT[employer] LEAD
[2024-02-13 10:58] VITALS: BP 149/93
[2024-02-13 11:38] VITALS: BP 149/93; PULSE 78; RESP 18; TEMP 36.1; O2SAT 99
== END 2024-02-13 11:43 | disposition home or self-care (01) ==
PROVIDERS: Emergency Provider Emergency Medicine; Visit Provider Emergency Medicine
DX: I10 Essential (primary) hypertension (principal); C61 Malignant neoplasm of prostate; Z95.0 Presence of cardiac pacemaker
CPT/HCPCS: 70450; 71046; 80048; 84484; 85025; 93005; 96374; 99285; A4216